=== PATIENT | male | born 2000 | race Caucasian/White ===

== ENCOUNTER 2019-03-23 17:49 | Emergency (ER) | payer SELFPAY ==
[2019-03-23] MEDS ORDERED: Ondansetron INJ* 2 MG/ML VIAL IV ONE (18:07)
[2019-03-23] MEDS ORDERED: NS 0.9% 1000 ML** 1,000 ML IV ONE (18:07)
[2019-03-23 19:56] LABS: Urine Benzodiazepine Screen None Detected (None Detect); Urine Opiates Screen None Detected (None Detect)
--- NOTE | 2019-03-23 20:04 | ED ---
Substance Abuse/Use - HPI Summary HPI Summary: Patient is a 19-year-old male presenting to the ED without contestation. Patient states he has never drank alcohol before and took 6 shots of peppermint schnapps. He denies any CP, SOB. He denies any drug use. He denies any health concerns, states he is having no pain, denies any head injury, other trauma or LOC. He states he feels otherwise at his baseline. Denies any significant PMH. - History Of Current Complaint Chief Complaint: EDSubstanceAbuse Stated Complaint: "ETOH PER BANGS" Hx Obtained From: Patient, EMS Hx From Patient Unobtainable Due To: Altered Mental Status Onset/Duration of Drug/ETOH Abuse: Hours Ingestion History: Type/Name Of Drug - Alcohol, Amount Ingested - 6 shots, Approximate Time Of Ingestion - Approximately 1 hour [employer] Overdose Characteristics: Oral Timing Of Abuse: Binge Use Severity Initially: Moderate Severity Currently: Severe Character: Stuporous Aggravating Factor(s): Nothing Alleviating Factor(s): Nothing Associated Signs And Symptoms: Nausea, Vomiting - Risk Factor(s) Completed Suicide Risk Factors: Negative - Allergies/Home Medications Allergies/Adverse Reactions: Allergies Allergy/AdvReac Type Severity Reaction Status Date / Time No Known Allergies Allergy Verified 03/23/19 17:56 PMH/Surg Hx/FS Hx/Imm Hx Previously Healthy: Yes Infectious Disease History: No Infectious Disease History: Denies: Traveled Outside the [place] in Last 30 Days - Social History Occupation: Employed Full-time Lives: With Family Alcohol Use: Rare Hx Substance Use: No Substance Use Type: Reports: None Smoking Status (MU): Light Every Day Tobacco Smoker Review of Systems Negative: Fever, Chills, Fatigue, Skin Diaphoresis Negative: Palpitations, Chest Pain Positive: Vomiting, Nausea. Negative: Abdominal Pain Genitourinary: Negative Positive: no symptoms reported, see HPI Negative: Arthralgia, Myalgia Skin: Negative Neurological: Negative Positive: Slurred Speech All Other Systems Reviewed And Are Negative: Yes Physical Exam Triage Information Reviewed: Yes Vital Signs On Initial Exam: Initial Vitals Temp Pulse Resp BP Pulse Ox 97.5 F 93 18 122/68 100 03/23/19 17:56 03/23/19 17:56 03/23/19 17:56 03/23/19 17:56 03/23/19 17:56 Completion Of Physical Exam Limited Due To: Altered Mental Status Appearance: Positive: Ill-Appearing Skin: Positive: Warm, Diaphoretic Head/Face: Positive: Normal Head/Face Inspection Eyes: Positive: EOMI, Conjunctiva Clear Neck: Positive: Supple, No Lymphadenopathy Respiratory/Lung Sounds: Positive: Clear to Auscultation, Breath Sounds Present Cardiovascular: Positive: Pulses are Symmetrical in both Upper and Lower Extremities Musculoskeletal: Positive: Strength/ROM Intact Neurological: Positive: Slurred Speech Psychiatric: Positive: Normal, Affect/Mood Appropriate AVPU Assessment: Alert - Baker Coma Scale Best Eye Response: 3 - To Speech Best Motor Response: 5 - Purposeful Movement Best Verbal Response: 5 - Oriented Coma Scale Total: 13 Diagnostics - Vital Signs Vital Signs Temp Pulse Resp BP Pulse Ox 03/23/19 19:47 89 17 123/95 100 03/23/19 19:42 90 133/80 100 03/23/19 19:37 79 137/89 100 03/23/19 19:32 81 109/69 80 03/23/19 19:28 66 119/71 100 03/23/19 19:22 71 121/75 100 03/23/19 19:12 79 17 117/77 100 03/23/19 19:07 77 15 119/66 100 03/23/19 19:02 77 12 131/93 100 03/23/19 19:00 80 13 100 03/23/19 18:57 73 16 126/90 100 03/23/19 18:52 71 125/84 100 03/23/19 18:47 68 13 110/69 100 03/23/19 18:42 70 11 109/66 100 03/23/19 17:56 97.5 F 93 18 122/68 100 - Laboratory Lab Results: Lab Results 03/23/19 Range/Units 18:31 Serum Alcohol 245 H (<10) mg/dL Lab Statement: Any lab studies that have been ordered have been reviewed, and results considered in the medical decision making process. Course/Dx - Course Course Of Treatment: On arrival into the ED, patient appears well, however is tearful. After approximately 45 minutes, patient is noted to be hypoxic between 65 and 75% as well as respirations dropping to below 10. He was then moved to room 14. He has continued to noted to be hypoxic on 5 L nasal cannula and switched to simple mask at 5 L. Immediately he has increased to 100% and this was decreased to 2 L simple mask. However, he continues to have respirations between 5 and 15. He is responding well, alert and oriented and responding appropriately to questions. However, when left alone, his resp drop again to between 5-10. NPA was placed. Sat remains 100%. Drug screen sent. Patient is signed out to [facility] pending improvement of patients condition and drug tox screen. - Diagnoses Differential Diagnosis/HQI/PQRI: Positive: Other - Alcohol intoxication, respiratory distress Provider Diagnoses: Alcohol intoxication - Critical Care Time Critical Care Time: 30-74 min Discharge - Sign-Out/Discharge Documenting (check all that apply): Sign-Out Patient Signing out patient TO: Evelyn Wu - Discharge Plan Condition: Good Referrals: No Primary Care Phys,NOPCP [Primary Care Provider] - - Billing Disposition and Condition Condition: GOOD
--- NOTE | 2019-03-24 02:19 | ED ---
Progress - Progress Note Progress Note: patient signed out by laura pending sobriety. in course of ED patient required nasal trumpet to maintain oxygen for a while and then was able to just tolerate the mask. patient was a sleep in room till 4:30am when was woken up and was able to be discharge with steady gait. Course/Dx - Course Course Of Treatment: On arrival into the ED, patient appears well, however is tearful. After approximately 45 minutes, patient is noted to be hypoxic between 65 and 75% as well as respirations dropping to below 10. He was then moved to room 14. He has continued to noted to be hypoxic on 5 L nasal cannula and switched to simple mask at 5 L. Immediately he has increased to 100% and this was decreased to 2 L simple mask. However, he continues to have respirations between 5 and 15. He is responding well, alert and oriented and responding appropriately to questions. However, when left alone, his resp drop again to between 5-10. NPA was placed. Sat remains 100%. Drug screen sent. drug screen no other drugs. patient required NPA for a couple hours to maintain sats. patient slept for remainder of shift and was discharged with steady gait. - Diagnoses Provider Diagnoses: Alcohol intoxication - Critical Care Time Critical Care Time: 30-74 min Discharge - Sign-Out/Discharge Documenting (check all that apply): Patient Departure, Receiving Sign-Out Receiving patient FROM: Laura Valdivia Patient Received Moderate/Deep Sedation with Procedure: No - Discharge Plan Condition: Good Disposition: HOME Patient Education Materials: Alcohol Intoxication (ED) Referrals: No Primary Care Phys,NOPCP [Primary Care Provider] - Additional Instructions: follow up with [facility] try not to drink to excess Return to ED if develop any new or worsening symptoms - Billing Disposition and Condition Condition: GOOD Disposition: Home
[2019-03-24 05:08] VITALS: BP 96/61
== END 2019-03-24 04:50 | disposition home or self-care (01) ==
LOC: ED 17:49
DX: F10.129 Alcohol abuse with intoxication, unspecified (principal); R11.2 Nausea with vomiting, unspecified; F17.210 Nicotine dependence, cigarettes, uncomplicated; R47.81 Slurred speech
CPT/HCPCS: 36415; 80307; 80320; 96374; 99284; G0480; J2405

== ENCOUNTER 2019-05-27 14:22 | Emergency (ER) | payer OTHER ==
[2019-05-27] MEDS ORDERED: Aspirin 81 mg CHEW TAB* 81 MG TAB.CHEW PO ONE (14:38)
--- NOTE | 2019-05-27 14:39 | ED ---
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 He also had SOB, N/V and CP. He has a Hx of asthma. He reports taking steroids but denies cocaine or other drugs. He denies a PMHx of anything. He rated his pain as a 6/ 10 in severity. He has Hx of asthma but denies any other PMHx. He denies any FHx of ND at his age. He says that his parents are well and so are his siblings. STEMI alert called 14:35. - History of Current Complaint Time Seen by Provider: 05/27/19 14:32 Hx Obtained From: Patient, EMS Onset/Duration: Started Minutes Ago, Still Present Timing: Constant, Lasting Minutes Initial Severity: Moderate Current Severity: Moderate Pain Intensity: 6 Pain Scale Used: 0-10 Numeric Chest Pain Location: Diffuse Chest Pain Radiates: No Character: Pressure/Squeezing Aggravating Factor(s): Nothing Alleviating Factor(s): Nothing Associated Signs and Symptoms: Positive: Shortness of Breath, Nausea, Vomiting - Allergy/Home Medications Allergies/Adverse Reactions: Allergies Allergy/AdvReac Type Severity Reaction Status Date / Time No Known Allergies Allergy Verified 05/27/19 14:36 Home Medications: Home Medications NK [No Home Medications Reported] 05/27/19 [History Confirmed 05/27/19] NK [No Home Medications Reported] 05/27/19 [History Confirmed 05/27/19] PMH/Surg Hx/FS Hx/Imm Hx Endocrine/Hematology History: Denies: Hx Diabetes Cardiovascular History: Denies: Hx Hypercholesterolemia, Hx Hypertension - Family History Known Family History: Positive: Other - no ND near 19 y/o - Social History Alcohol Use: Rare Hx Substance Use: No Substance Use Type: Reports: None Smoking Status (MU): Light Every Day Tobacco Smoker Review of Systems Negative: Fever Positive: Chest Pain Positive: Shortness Of Breath Positive: Vomiting, Nausea All Other Systems Reviewed And Are Negative: Yes Physical Exam - Summary Physical Exam Summary: VITAL SIGNS: Reviewed. GENERAL: Patient is a well-developed and nourished MALE who is lying comfortable in the stretcher. Patient is not in any acute respiratory distress. HEAD AND FACE: No signs of trauma. No ecchymosis, hematomas or skull depressions. No sinus tenderness. EYES: PERRLA, EOMI x 2, No injected conjunctiva, no nystagmus. EARS: Hearing grossly intact. Ear canals and tympanic membranes are within normal limits. MOUTH: Oropharynx within normal limits. NECK: Supple, trachea is midline, no adenopathy, no JVD, no carotid bruit, no c- spine tenderness, neck with full ROM. CHEST: Symmetric, no tenderness at palpation. LUNGS: Clear to auscultation bilaterally. No wheezing or crackles. CVS: Regular rate and rhythm, S1 and S2 present, no murmurs or gallops appreciated. ABDOMEN: Soft, non-tender. No signs of distention. No rebound, no guarding, and no masses palpated. Bowel sounds are normal. EXTREMITIES: FROM in all major joints, no edema, no cyanosis or clubbing. NEURO: Alert and oriented x 3. No acute neurological deficits. Speech is normal and follows commands. SKIN: Dry and warm. Triage Information Reviewed: Yes Vital Signs Reviewed: Yes Diagnostics - Laboratory Result Diagrams: 05/27/19 14:40 05/27/19 14:40 Lab Statement: Any lab studies that have been ordered have been reviewed, and results considered in the medical decision making process. - Radiology CXR Radiology Interpretation Completed By: Radiologist Summary of Radiographic Findings: NO ACTIVE CARDIOPULMONARY DISEASE IS NOTED. ED physician has reviewed this imaging report. - EKG 14:29 Cardiac Rate: NL - 78 bpm EKG Rhythm: Sinus Rhythm Summary of EKG Findings: NSR at [address] elevations in leads III, aVF, V2 and V3 without any reciprocal changes. 14:30 Cardiac Rate: NL - 72 bpm EKG Rhythm: Sinus Rhythm Summary of EKG Findings: NSR at [address] elevations in leads III, aVF, V2 and V3 without any reciprocal changes. 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 He also had SOB, N/V and CP. He has a Hx of asthma. He reports taking steroids but denies cocaine or other drugs. He denies a PMHx of anything. He rated his pain as a 6/10 in severity. He has Hx of asthma but denies any other PMHx. He denies any FHx of ND at his age. He says that his parents are well and so are his siblings. STEMI alert called 14:35. EKG shows her to elevations in leads 3 , aVF, V2 and V3. In the ED course the patient was placed in a ekg monitor , IV access was obtained, IV fluids were started. The patient doesnt have any comorbidities, he is only 19 years old however the EKG shows ST elevations. Therefore, I discussed the case with Dr. Xiong from interventional cardiology and he recommends a stat echocardiogram. Echocardiogram was done and he reports that the patient doesnt have any wall abnormalities therefore he has no suspicion for an acute ND. In the ED course the patient was given aspirin and Toradol. The symptoms have subsided. Blood work without any significant abnormality except for calcium of 10.4 and the INR was 1.1. Chest x-ray impression: No acute cardiopulmonary disease. Patient had 2 troponins 4 hours apart and they were negative. After the patient was given those medications the symptoms improved. Therefore, the patient will be discharged home with follow-up with PCP. Patient reports that all symptoms have resolved. Because the patient has no significant comorbidities and no family history of cardiovascular disease at his age the patient will be discharged home with follow up with PCP. I discussed all the findings and test results with the patient. Patient was instructed to return to the emergency room immediately if any of the symptoms return or worsens. Patient understands and agrees. Plan of care was discussed with the patient and patient understands and agrees. All questions were answered at patient satisfaction. There were no further complaints or concerns. PE before discharge: CVS: S1 and S2 present. No murmurs appreciated. Abdominal exam before discharge: Soft, non-tender. No signs of distention. No rebound no guarding, and no masses palpated. Bowel sounds are normal. Patient is alert and oriented x 3. Patient is hemodynamically stable. - Diagnoses Provider Diagnoses: Chest pain - Provider Notifications Discussed Care Of Patient With: Mateo Xiong Time Discussed With Above Provider: 14:35 Instructed by Provider To: Other - Discussed case with Dr. Xiong, who will send someone to do an echocardiogram Discharge - Sign-Out/Discharge Documenting (check all that apply): Patient Departure - DC Patient Received Moderate/Deep Sedation with Procedure: No - Discharge Plan Condition: Stable Disposition: HOME Patient Education Materials: Chest Pain (DC) Referrals: [facility] [Outside] (2-3 days) Additional Instructions: FOLLOW UP WITH YOUR PRIMARY CARE PROVIDER WITHIN 2-3 DAYS. RETURN TO THE ED FOR ANY WORSENING OR NEW SYMPTOMS. - Billing Disposition and Condition Condition: STABLE Disposition: Home - Attestation Statements Document Initiated by Scribe: Yes Documenting Scribe: Bill Reyes Provider For Whom Jadenibe is Documenting (Include Credential): Elan Matute MD Scribe Attestation: I, Bill Reyes, scribed for Elan Matute MD on 05/28/19 at 1048. Scribe Documentation Reviewed: Yes Provider Attestation: The documentation as recorded by the Bill granda accurately reflects the service I personally performed and the decisions made by me, Elan Matute MD Status of Scribe Document: Viewed Consult Consult: At 14:[address] Xiong, who says that the patient's echocardiogram was negative and that he does not have suspicion for acute ND.
[2019-05-27 14:54] LABS: ABS Eosinophils 0.2 10^3/ul (0-0.6); ABS Lymphocytes 1.6 10^3/ul (1.0-4.8); ABS Monocytes 0.4 10^3/ul (0-0.8); ABS Neutrophils 2.7 10^3/ul (1.5-7.7); Eosinophil % 4.8 %; Hematocrit 42 % (42-52); Hemoglobin 14.4 g/dL (14.0-18.0); Lymphocyte % 31.7 %; Mean Corpuscular HGB Conc 34 g/dL (31-36); Mean Corpuscular Hemoglobin 31 pg (27-31); Mean Corpuscular Volume 91 fL (80-94); Mean Platelet Volume 8.4 fL (7.4-10.4); Platelet Count 197 10^3/uL (150-450); Red Blood Count 4.64 10^6 /uL (4.18-5.48); Red Cell Distribution Width 14 % (10-15)
[2019-05-27 15:12] LABS: Albumin 4.3 g/dL (3.2-5.2); Albumin/Globulin Ratio 1.7 (1-3); BUN/Creatinine Ratio 16.3 (8-20); Calcium 10.4 mg/dL (8.6-10.3); EGFR African American 147.7 (>60); Globulin 2.6 g/dL (2-4); Potassium 3.7 mmol/L (3.5-5.0); Total Protein 6.9 g/dL (6.4-8.9)
[2019-05-27 15:14] LABS: Myoglobin 47.6 ng/mL (17.4-105.7)
[2019-05-27 15:15] LABS: CKMB ng/mL 4.4 ng/mL (0.6-6.3)
[2019-05-27] MEDS ORDERED: Ketorolac INJ* 30 MG/ML 1 ML VIAL IV PUSH ONE (15:34)
[2019-05-27 15:39] LABS: Activated Partial Thrombo Time 34.3 seconds (26.0-38.0); INR 1.11 (0.82-1.09)
--- NOTE | 2019-05-27 15:51 | ECHO ---
*[facility]* [place] [address] Fax #: [phone] Transthoracic Echocardiogram Patient: Chau Escobedo : 2000 Study Date: 05/27/2019 Age: 19 Gender: M HR: 83 bpm Height: 74 in /188 cm BSA: 2.08 m^2 Weight: 180.6 lb /82.1 kg BMI: 23.2 kg/m^2 *Band Cutter: * Kristan Borrero [facility] *Referring Physician: * Mateo Xiong MD *Reading Physician: * Ismael Horne MD Indications: Myocardial Infarction (new). History: Asthma. Risk factors: Current tobacco use. Conclusions Summary: 1. Left ventricle: The cavity size is normal. Wall thickness is normal. Systolic function is normal. The estimated ejection fraction is 55-60%. Wall motion is normal; there are no regional wall motion abnormalities. 2. Normal cardiac chamber sizes. 3. Functionally benign heart valves. 4. There is no prior echocardiogram available to compare with at this time. Study data: Transthoracic echocardiogram. Procedure: Transthoracic echocardiography was performed. Image quality was good. Complete 2D, spectral Doppler, and color flow Doppler. Location: Emergency department. Patient status: Inpatient. Patient room number: ED-2. Rhythm: Normal sinus rhythm with PVC's. Findings Left ventricle: The cavity size is normal. Wall thickness is normal. Systolic function is normal. The estimated ejection fraction is 55-60%. Wall motion is normal; there are no regional wall motion abnormalities. Left ventricular diastolic function parameters are normal. Right ventricle: The cavity size is normal. Systolic function is normal. The tricuspid jet envelope definition is inadequate for estimation of RV systolic pressure. There are no indirect findings (abnormal RV volume or geometry, altered pulmonary flow velocity profile, or leftward septal displacement) which would suggest moderate or severe pulmonary hypertension. Left atrium: The atrium is normal in size. Right atrium: The atrium is normal in size. Mitral valve: The leaflets are normal thickness. There is trace regurgitation. Aortic valve: The valve is trileaflet. The leaflets are normal thickness. There is no evidence of stenosis. There is no significant regurgitation. Tricuspid valve: The leaflets are normal thickness. There is physiologic regurgitation. Pulmonic valve: The leaflets are normal thickness. There is no evidence of stenosis. There is trace regurgitation. Aorta: Ascending aorta: The ascending aorta is appears normal. Aortic arch: The aortic arch is appears normal. The aortic root is not dilated. Pericardium: There is no significant pericardial effusion. Pulmonary arteries: The main pulmonary artery is normal-sized. Systolic pressure can not be accurately estimated. Systemic veins: Inferior vena cava: The vessel is normal in size. The respirophasic diameter changes are in the normal range (>= 50%). Measurements Left ventricle Value Ref Aortic valve Value Ref JAMES, LAX 4.5 cm 4.2 - 5.8 Queenie diam, ED 2.5 cm ---- ESD, LAX 3.4 cm 2.5 - 4.0 Peak v, S 0.91 m/sec ---- FS, LAX 25 % 25 - 43 VTI, S 15.7 cm ---- PW, ED, LAX (H) 1.1 cm 0.6 - 1.0 Mean grad, S 2.0 mm Hg ---- FS 25 % 25 - 43 Peak grad, S 3.0 mm Hg ---- PW, ED (H) 1.1 cm 0.6 - 1.0 LVOT/AV, VTI ratio 0.89 ---- E', lat queenie, TDI 16.2 cm/sec >=10.0 E/e', lat queenie, 5 Mitral valve Value Ref TDI Peak E 0.84 m/sec ---- E', med queenie, TDI 12.0 cm/sec >=7.0 Peak A 0.44 m/sec -- -- E/e', med queenie, 7 Decel time 98 ms ---- TDI Peak grad, D 2.8 mm Hg ---- E', avg, TDI 14.1 cm/sec Peak E/A ratio 1.9 ---- E/e', avg, TDI 6 <=14 Pulmonic valve Value Ref LVOT Value Ref Peak v, S 0.76 m/sec ---- Peak marguerite, S 0.77 m/sec Peak grad, S 2.0 mm Hg ---- VTI, S 14.0 cm Mean grad, S 1 mm Hg Aortic root Value Ref Root diam 3.4 cm <3.8 Ventricular septum Value Ref IVS, ED (H) 1.1 cm 0.6 - 1.0 Ascending aorta Value Ref AAo AP diam, S 2.4 cm ---- Right ventricle Value Ref JAMES, LAX 2.2 cm Aortic arch Value Ref JAMES minor ax, A4C (H) 4.1 cm 1.9 - 3.5 Arch diam 1.8 cm ---- mid Decending aorta Value Ref Left atrium Value Ref Bassam peak marguerite 0.95 m/sec ---- AP dim, ES (L) 2.10 cm 3.00 - 4.00 Inferior vena cava Value Ref ML dim, A4C 3.5 cm Diam 1.4 cm ---- SI dim, A4C 4.2 cm Vol/bsa, ES, 1-p 17 ml/m^2 12 - 37 A4C Vol/bsa, ES, A/L 20 ml/m^2 16 - 34 Right atrium Value Ref SI dim, ES 4.4 cm 3.4 - 5.3 ML dim, ES, A4C 4.0 cm 2.6 - 4.4 SI dim, ES, A4C 4.4 cm 3.4 - 5.3 Estimated RAP 3 mm Hg Legend: (L) and (H) stephanie values outside specified reference range. Prepared and electronically signed by Ismael Horne MD 05/27/2019 15:51
[2019-05-27 18:22] VITALS: BP 109/65
== END 2019-05-27 18:22 | disposition home or self-care (01) ==
LOC: ED 14:22
DX: R07.89 Other chest pain (principal); R06.02 Shortness of breath; R11.2 Nausea with vomiting, unspecified; F17.200 Nicotine dependence, unspecified, uncomplicated
CPT/HCPCS: 36415; 71045; 80053; 82550; 82553; 83605; 83721; 83874; 83880; 84484; 85025; 85610; 85730; 93005; 93306; 96374; 99284; A9270-GY; J1885

== ENCOUNTER 2019-11-17 20:30 | Emergency (ER) | payer OTHER ==
[2019-11-17] MEDS ORDERED: Sucralfate TAB* 1 GM PO ONE (20:44)
--- NOTE | 2019-11-17 20:45 | ED ---
HPI Chest Pain - HPI Summary HPI Summary: This pt is a 19 Y/O M presenting to [facility] with a CC of burning mid sternal CP that began at 1730 today and is currently rated a 7/10 in severity. He states that he has been feeling palpitations and a tingling In his fingers and hands. He states that he has SOB. He states that breathing aggravates his symptoms. He has no alleviating factors. He states that he has a PMHx of depression and anxiety. 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 - History of Current Complaint Chief Complaint: EDChestPainROMI Time Seen by Provider: 11/17/19 20:37 Hx Obtained From: Patient Onset/Duration: Started Hours Ago - 3, Still Present Time of Onset: 17:30 Timing: Constant Initial Severity: Moderate Current Severity: Moderate Pain Intensity: 7 Pain Scale Used: 0-10 Numeric Chest Pain Location: Discrete at:, Mid Sternal Chest Pain Radiates: No Character: Burning Aggravating Factor(s): Deep Breaths Alleviating Factor(s): Nothing Associated Signs and Symptoms: Positive: Chest Pain, Tingling - bilateral hands and fingers, Shortness of Breath, Palpitations - Allergy/Home Medications Allergies/Adverse Reactions: Allergies Allergy/AdvReac Type Severity Reaction Status Date / Time No Known Allergies Allergy Verified 05/27/19 14:36 Home Medications: Home Medications NK [No Home Medications Reported] 11/17/19 [History Confirmed 11/17/19] PMH/Surg Hx/FS Hx/Imm Hx Previously Healthy: Yes Endocrine/Hematology History: Denies: Hx Diabetes Cardiovascular History: Denies: Hx Hypercholesterolemia, Hx Hypertension Sensory History: Reports: Hx Contacts or Glasses Opthamlomology History: Reports: Hx Contacts or Glasses Psychiatric History: Reports: Hx Anxiety, Hx Depression, Hx Substance Abuse - ETOH - Cancer History Hx Chemotherapy: No Hx Radiation Therapy: No - Surgical History Surgical History: None - Immunization History Immunizations Up to Date: Yes Infectious Disease History: No Infectious Disease History: Denies: Traveled Outside the [place] in Last 30 Days - Family History Known Family History: Negative: Cardiac Disease, Diabetes - Social History Occupation: Employed Full-time Lives: Alone Alcohol Use: Rare Hx Substance Use: No Substance Use Type: Reports: None Hx Tobacco Use: Yes Smoking Status (MU): Light Every Day Tobacco Smoker Review of Systems All Other Systems Reviewed And Are Negative: Yes Physical Exam - Summary Physical Exam Summary: Appearance: The patient is well-nourished in no acute distress and in no acute pain. Skin: The skin is warm and dry and skin color reflects adequate perfusion. HEENT: The head is normocephalic and atraumatic. The pupils are equal and reactive. The conjunctivae are clear and without drainage. Nares are patent and without drainage. Mouth reveals moist mucous membranes and the throat is without erythema and exudate. The external ears are intact. The ear canals are patent and without drainage. The tympanic membranes are intact. Neck: The neck is supple with full range of motion and non-tender. There are no carotid bruits. There is no neck vein distension. Respiratory: Chest is non-tender. Lungs are clear to auscultation and breath sounds are symmetrical and equal. Cardiovascular: Heart is regular rate and rhythm. There is no murmur or rub auscultated. There is no peripheral edema and pulses are symmetrical and equal. Abdomen: The abdomen is soft and non-tender. There are normal bowel sounds heard in all four quadrants and there is no organomegaly palpated. Musculoskeletal: There is no back tenderness noted. Extremities are non-tender with full range of motion. There is good capillary refill. There is no peripheral edema or calf tenderness elicited. Neurological: Patient is alert and oriented to person, place and time. The patient has symmetrical motor strength in all four extremities. Cranial nerves are grossly intact. Deep tendon reflexes are symmetrical and equal in all four extremities. Psychiatric: The patient has an appropriate affect and does not exhibit any anxiety or depression. Triage Information Reviewed: Yes Vital Signs On Initial Exam: Initial Vitals Temp Pulse Resp BP Pulse Ox 98.2 F 88 11 125/66 100 11/17/19 20:35 11/17/19 20:35 11/17/19 20:35 11/17/19 20:35 11/17/19 20:35 Vital Signs Reviewed: Yes Procedures - Sedation Patient Received Moderate/Deep Sedation with Procedure: No Diagnostics - Vital Signs Vital Signs Temp Pulse Resp BP Pulse Ox 11/17/19 20:37 89 21 123/60 100 11/17/19 20:35 98.2 F 88 11 125/66 100 - Laboratory Result Diagrams: 11/17/19 20:56 11/17/19 20:56 Lab Statement: Any lab studies that have been ordered have been reviewed, and results considered in the medical decision making process. - Radiology CXR Radiology Interpretation Completed By: ED Physician Summary of Radiographic Findings: No acute processes or pleural effusions. Pending offical review. - EKG 2031 Cardiac Rate: NL - 81 EKG Rhythm: Sinus Rhythm ST Segment: Normal Summary of EKG Findings: Normal sinus rhythm at 81 BPM with probable early repolarization, normal ST, no STEMI. Interpreted by Dr. Melchor 11/17/20192036 Chest Pain Course/Dx - Course Course Of Treatment: Mr. Escobedo's EKG looks like early repolarization to me. Chest x-ray and initial labs including a troponin are negative. We're pending a second troponin but he is asked to speak with the mental health people and I think he is cleared at this point for that. - Diagnoses Provider Diagnoses: Chest pain Discharge ED - Sign-Out/Discharge Documenting (check all that apply): Sign-Out Patient Signing out patient TO: Nolvia Ramon - Discharge Plan Referrals: No Primary Care Phys,NOPCP [Primary Care Provider] - - Attestation Statements Document Initiated by Scribe: Yes Documenting Scribe: Misha Rivers Provider For Whom Scribe is Documenting (Include Credential): Ankit Melchor MD Scribe Attestation: Misha Avalos, scribed for Ankit Melchor MD on 11/17/19 at 2145. Scribe Documentation Reviewed: Yes Provider Attestation: The documentation as recorded by the Misha granda accurately reflects the service I personally performed and the decisions made by , Ankit Melchor MD Status of Scribe Document: Viewed
[2019-11-17 21:12] LABS: ABS Eosinophils 0.1 10^3/ul (0-0.6); ABS Lymphocytes 2.3 10^3/ul (1.0-4.8); ABS Monocytes 0.5 10^3/ul (0-0.8); Eosinophil % 1.7 %; Hematocrit 40 % (42-52); Hemoglobin 13.5 g/dL (14.0-18.0); Lymphocyte % 33.3 %; Mean Corpuscular HGB Conc 33 g/dL (31-36); Mean Corpuscular Hemoglobin 31 pg (27-31); Mean Corpuscular Volume 92 fL (80-94); Nucleated Red Blood Cells % 0.1; Platelet Count 275 10^3/uL (150-450); Red Cell Distribution Width 15 % (10-15); White Blood Count 6.9 10^3/uL (3.5-10.8)
[2019-11-17 21:29] LABS: Albumin 4.1 g/dL (3.2-5.2); Albumin/Globulin Ratio 1.8 (1-3); BUN/Creatinine Ratio 18.3 (8-20); Calcium 9.4 mg/dL (8.6-10.3); EGFR African American 143.5 (>60); EGFR Non-African American 118.6 (>60); Globulin 2.3 g/dL (2-4); Total Bilirubin 0.3 mg/dL (0.2-1.0); Total Protein 6.4 g/dL (6.4-8.9)
[2019-11-17 21:53] LABS: Potassium 3.9 mmol/L (3.5-5.0)
--- NOTE | 2019-11-18 00:05 | ED ---
Progress - Progress Note Progress Note: Receiving sign-out from Dr. Melchor pending 2nd troponin, 2nd EKG, and MHE. EKG at 2350 showed NSR at 74 BPM with no change from prior today. 2nd troponin was 0.01. Social Work met with this patient. Social work determined he had no SI and HI. Mother called from [place] and stated she can move down there with her. Social work gave him outpatient contacts to help with the grieving of the loss of his child and stated he was cleared. A plan for discharge was discussed with the patient and he was agreeable with this plan. Re-Evaluation - Re-Evaluation First Eval Re-Evaluation Time: 00:39 Comment: Social Work met with this patient. Social work determined he had no SI and HI. Mother called from [place] and stated she can move down there with her. Social work gave him outpatient contacts to help with the grieving of the loss of his child and stated he was cleared. Course/Dx - Course Course Of Treatment: Receiving sign-out from Dr. Melchor pending 2nd troponin, 2nd EKG, and MHE. EKG at 2350 showed NSR at 74 BPM with no change from prior today. 2nd troponin was 0.01. Social Work met with this patient. Social work determined he had no SI and HI. Mother called from [place] and stated she can move down there with her. Social work gave him outpatient contacts to help with the grieving of the loss of his child and stated he was cleared. A plan for discharge was discussed with the patient and he was agreeable with this plan. - Diagnoses Provider Diagnoses: Chest pain, Grieving, Anxiety, Depression, Homelessness Discharge ED - Sign-Out/Discharge Documenting (check all that apply): Patient Departure - Discharge - Discharge Plan Condition: Stable Disposition: HOME Patient Education Materials: Depression (ED) Referrals: No Primary Care Phys,NOPCP [Primary Care Provider] - Additional Instructions: Return to ED with new or worsening symptoms. - Billing Disposition and Condition Condition: STABLE Disposition: Home - Attestation Statements Document Initiated by Scribe: Yes Documenting Scribe: Morales Kelly Provider For Whom Scribe is Documenting (Include Credential): Nolvia Ramon MD Scribe Attestation: Morales Avalos, scribed for Nolvia Ramon MD on 11/18/19 at 0234. Scribe Documentation Reviewed: Yes Provider Attestation: The documentation as recorded by the scribe, Morales Kelly accurately reflects the service I personally performed and the decisions made by me, Nolvia Ramon MD Status of Scribe Document: Viewed
[2019-11-18 01:26] VITALS: BP 124/67
== END 2019-11-18 01:10 | disposition home or self-care (01) ==
LOC: ED 20:30
DX: R07.89 Other chest pain (principal); F43.23 Adjustment disorder with mixed anxiety and depressed mood; Z59.0 Homelessness; R06.02 Shortness of breath; R00.2 Palpitations; R20.2 Paresthesia of skin; F17.200 Nicotine dependence, unspecified, uncomplicated
CPT/HCPCS: 36415; 71045; 80053; 83605; 84484; 85025; 85379; 93005; 99284; A9270-GY